=== PATIENT | female | born 1980 | race Two or more races ===

== ENCOUNTER 2017-10-10 16:17 | Emergency (ER) | payer MEDICAID ==
[~2017-10-10] VITALS: Ht 157.5 cm; Wt 62.1 kg
[2017-10-10 19:36] VITALS: BP 112/85
== END 2017-10-10 19:56 | disposition home or self-care (01) ==
LOC: ER 16:30
DX: T18.9XXA Foreign body of alimentary tract, part unspecified, initial encounter (principal); F17.210 Nicotine dependence, cigarettes, uncomplicated; Z88.0 Allergy status to penicillin; Y99.8 Other external cause status; Y93.89 Activity, other specified; Y92.89 Other specified places as the place of occurrence of the external cause
CPT/HCPCS: 71010; 74000

== ENCOUNTER 2017-10-15 16:24 | Emergency (ER) | payer MEDICAID ==
[~2017-10-15] VITALS: Ht 157.5 cm; Wt 62.1 kg
[2017-10-15 17:40] VITALS: BP 117/79
== END 2017-10-15 17:56 | disposition home or self-care (01) ==
LOC: ER 16:27
DX: T18.9XXD Foreign body of alimentary tract, part unspecified, subsequent encounter (principal); F17.210 Nicotine dependence, cigarettes, uncomplicated; Z88.0 Allergy status to penicillin; Y92.89 Other specified places as the place of occurrence of the external cause
CPT/HCPCS: 74000; 81025